=== PATIENT | female | born 1975 | race American Indian/Alaskan Native ===

== ENCOUNTER 2020-10-03 07:21 | Day surgery (SDC) | payer BC ==
[~2020-10-03 07:21] MED LIST: SODIUM CHLORIDE 0.9% 1000 ML 1,000 ML IV SCH
--- NOTE | 2020-10-03 09:01 | Anesthesia Consultation ---
Anesthesia Consult and Med Hx Date of service: 10/03/20 - Airway Anesthetic Teeth Evaluation: Poor ROM Head & Neck: Adequate Mental/Hyoid Distance: Adequate Mallampati Class: Class II Intubation Access Assessment: Probably Good - Pulmonary Exam CTA: Yes - Cardiac Exam Cardiac Exam: RRR - Pre-Operative Health Status ASA Pre-Surgery Classification: ASA2 Proposed Anesthetic Plan: MAC - Pulmonary Hx Smoking: No Hx Respiratory Symptoms: No - Cardiovascular System Hx Hypertension: No - Central Nervous System CVA: No - Endocrine Hx Renal Disease: No Hx Liver Disease: No Hx Insulin Dependent Diabetes: No Hx Non-Insulin Dependent Diabetes: No Hx Thyroid Disease: No - Other Systems Hx Obesity: Yes
--- NOTE | 2020-10-03 09:02 | Anesthesia Day of Surgery ---
Anesthesia Day of Surgery - Day of Surgery Patient Examined: Yes Patient H&P Reviewed: Yes Patient is NPO: Yes
--- NOTE | 2020-10-03 09:53 | Discharge Summary ---
Providers - Providers Date of Admission: 10/03/20 Date of discharge: 10/03/20 Attending physician: JAYY MOJICA MD Primary care physician: COMPUTER [employer]INER Hospitalization Reason for admission: EGD to evaluate cause of GERD Condition: Good Procedures: EGD with bx Hospital course: PT is here for EGD to evaluate her sleeved stomach. She has been complaining of acid reflux. She had an uneventful EGD with bx and was discharged home in stable condition. Disposition: - TO HOME OR SELFCARE Core Measure Documentation - Palliative Care Palliative Care/ Comfort Measures: Not Applicable - Core Measures Any of the following diagnoses?: none Exam - Physical Exam Narrative exam: unchanged from pre-op - Constitutional Vitals: Temp Pulse Resp BP Pulse Ox 98.4 F 58 L 17 169/93 100 10/03/20 08:30 10/03/20 08:30 10/03/20 08:30 10/03/20 08:30 10/03/20 08:30 Plan Activity: advance as tolerated Diet: low carbohydrate Follow up with: BRI KIMBLE MD [Primary Care Provider] - 7 Days
--- NOTE | 2020-10-03 09:55 | Operative Report ---
Operative Report Operative Report: DATE: 10/03/20 SURGEON: Francois Bryant M.D. PROCEDURE: EGD with biopsy PRE OP DX: GERD, hx of bariatric surgery POST OP DX: gastritis TYPE OF ANESTHESIA: MAC. ESTIMATED BLOOD LOSS: None. COMPLICATIONS: None. SPECIMENS REMOVED: antral biopsy FINDINGS: 1. normal gastric sleeve anatomy 2. gastritis INDICATIONS:INDICATION FOR PROCEDURE: Patient is a 45-year-old female with a history of sleeve gastrectomy 3 years ago. She is complaining of gastric reflux. We are looking for any pathology that could be contributing to her reflux. PROCEDURE DETAILS: After consent was reviewed, patient was taken back to the operating room where patient was placed in the left lateral decubitus position and a bite block was placed in the mouth. After a time-out was called, MAC anesthesia was initiated. I then passed the endoscope into her oropharynx, into her esophagus, visualized the entire esophagus, which was all within normal limits. Z-line was noted to about 35cm from incisors. I then visualized the stomach and the first portion of the duodenum and there were no abnormalities I could clearly visualize. The stomach was appropriately narrowed given her history of sleeve gastrectomy. There were no points of obstruction. There was noted to be generalized gastritis. A cold forceps biopsy of the antrum was taken and will be sent to pathology to evaluate for H.pylori. I could not safely retroflex the scope due to the narrow width of the stomach. I then desufflated the stomach and removed the endoscope. Patient tolerated procedure well and was transferred to recovery room in good and stable condition.
[2020-10-03] MEDS ORDERED: propofoL 200 MG/20 ML VIAL IV ONE (10:06)
[2020-10-03] MEDS ORDERED: SUCRALFATE 1 GM/10 ML ORAL LIQD PO STA (10:25)
[2020-10-03 10:58] VITALS: BP 159/91
--- NOTE | 2020-10-03 12:45 | Post Anesthesia Evaluation ---
- Post Anesthesia Evaluation Patient Participated: Yes Airway Patent: Yes Stable Respiratory Function: Yes Nausea/Vomiting: No Temp > 96.8F: Yes Pain Manageable: Yes Adequeate Hydration: Yes Anesthesia Complications: No
== END 2020-10-03 11:15 | disposition home or self-care (01) ==
LOC: GIO 07:21
PROVIDERS: ATTEND Surgery
DX: K21.9 Gastro-esophageal reflux disease without esophagitis (principal); E66.01 Morbid (severe) obesity due to excess calories; K29.70 Gastritis, unspecified, without bleeding; K30 Functional dyspepsia; Z91.040 Latex allergy status; Z98.84 Bariatric surgery status; Z68.36 Body mass index [BMI] 36.0-36.9, adult
CPT/HCPCS: 43239; 88305; 88342; J2704; J7030